=== PATIENT | male | born 1955 | race Caucasian/White ===

== ENCOUNTER 2023-11-15 13:22 | Emergency (ER) | payer OTHER, SELFPAY ==
--- NOTE | ~2023-11-15 | CT_ITS ---
CT HEAD WITHOUT IV CONTRAST CT CERVICAL SPINE WITHOUT IV CONTRAST INDICATION: Multiple falls. COMPARISON: None available. TECHNIQUE: Multidetector CT acquisitions of the head and cervical spine were obtained without IV contrast. Multiplanar reformats were acquired and utilized for image interpretation. This CT examination was performed using dose optimization techniques as appropriate, variously including the following: *Automated exposure control *Adjustment of mA and/or kV according to patient size (this includes techniques or standardized protocols for targeted exams where dose is matched to indication/reason for exam; i.e. 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 There is no intracranial hemorrhage, hydrocephalus, extra-axial surface collection, midline shift, or other herniation pattern. De La Garza to white matter differentiation is diffusely maintained without evidence of an evolved acute territorial infarct. The basilar cisterns are preserved. No significant soft tissue abnormality. No acute osseous abnormality. There is moderate mucosal thickening within the maxillary sinuses and ethmoid air cells bilaterally. The mastoid air cells and middle ear cavities are clear. Chronic appearing traumatic deformity of the right nasal bone. There is also chronic appearing traumatic deformity of the right maxillary sinus. CERVICAL SPINE: No acute fractures and no acute subluxations within the cervical spine. There is advanced cervical spondylosis. Mild degenerative anterior subluxation of C3 on C4. Atherosclerotic calcification involving the carotid bifurcations bilaterally. Biapical pleural parenchymal scarring, greater on the left. CT/CT cervical spine wo IV con IMPRESSION: - No acute intracranial abnormality. 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 - No acute osseous abnormality within the cervical spine. Advanced cervical spondylosis.
[2023-11-15 13:32] VITALS: BP 122/74; BP 138/82; PULSE 81; PULSE 90; RESP 16; TEMP 36.8; O2SAT 100; O2SAT 99; BMI 15.8
[2023-11-15 13:41] VITALS: BP 138/82; PULSE 81; RESP 16; TEMP 36.8; O2SAT 99
[2023-11-15 13:42] LABS: Glucose, Whole Blood 200 mg/dL (60-115)
--- NOTE | 2023-11-15 13:56 | ECG_ITS ---
Test Reason : FALL Blood Pressure : / mmHG Vent. Rate : 093 BPM Atrial Rate : 093 BPM P-R Int : 158 ms QRS Dur : 084 ms QT Int : 370 ms P-R-T Axes : 054 004 054 degrees QTc Int : 460 ms Sinus rhythm with Premature supraventricular complexes Anterior infarct , age undetermined Abnormal ECG No previous ECGs available Referred By: Sara Abdi Electronically Signed By:MAVERICK LERMA MD
--- NOTE | 2023-11-15 14:00 | ED_ITS ---
HPI - General Adult General Chief complaint: Fall Stated complaint: FALL,UNK WHEN,AMS,?ETOH PER EMS Time Seen by Provider: 11/15/23 13:41 Source: patient and EMS Mode of arrival: EMS Limitations: no limitations History of Present Illness HPI narrative: Patient comes to the emergency room via ambulance from home. Today, [employer] [employer] [facility] went to the liver foot to the patient, patient would not open the door. They noticed that the patient was on the floor, they broke into the patient's residence to help him. According to the [employer] personnel, patient was doing well yesterday, ambulatory, house was clean. Today, when EMS arrived, they found 50+ cans of beer. Patient states that he has been feeling weak and has fallen multiple times. Patient does not know how long he was on the floor until he was helped by EMS. Patient states that he did not lose consciousness, patient on blood thinners. EMS reports that on arrival to the patient's residence, blood glucose was 69, patient given D10 and oral glucose which increased the glucose level to 200. When I discussed with the patient what happened with the cans of beer, patient is adamant that he did not drink beer. Patient states that the last time he actually consumed alcohol was 7+ days. Patient states that he call ext can be ears, then gives it to his granddaughter who sells them. Related Data Allergies Allergy/AdvReac Type Severity Reaction Status Date / Time No Known Allergies Allergy Verified 11/15/23 13:55 Review of Systems 2 Review of Systems: Constitutional : No Weight loss, No Fever, No Chills, No Night Sweats, No Fatigue, No Malaise ENT/Mouth : No Hearing loss, No Ear Pain, No Nasal Congestion, No Sinus Pain, No Hoarseness, No sore throat, No Rhinorrhea, No Swallowing Difficulty Eyes: No Eye Pain, No Swelling, No Redness, No Foreign Body, No Discharge, No Vision Changes Cardiovascular : No Chest Pain, No SOB, No Dyspnea on Exertion, No Orthopnea, No Edema, No Palpitations Respiratory : No Cough, No Sputum, No Wheezing, No Smoke Exposure, No Dyspnea Gastrointestinal : No Nausea, No Vomiting, No Diarrhea, No Constipation, No abdominal Pain, No Hematochezia, No Melena Genitourinary : no irregular bleeding, No Dysuria, No Urinary Frequency, No Hematuria, No Urinary Incontinence, No Urgency, No Flank Pain, No Urinary Flow Changes, No Hesitancy Musculoskeletal : Complaining of diffuse body aches and multiple falls, No Myalgias, No Joint Swelling Skin : No Skin Lesions, No rash Neuro : No Weakness, No Numbness, No Paresthesias, No Loss of Consciousness, No Dizziness, No Headache Psych : No Anxiety/Panic, No Depression, No SI/HI/AH/VH, No Social Issues, Heme/Lymph: No Bruising, No Bleeding,No Lymphadenopathy Endocrine : No Polyuria, No Polydipsia, No Temperature Intolerance [facility] Social History Social History Alcohol intake: current Alcohol intake frequency: 3 or more drinks per day Alcohol type: beer Smoked in Last 30 Days: Yes Use of substances other than those prescribed or required for medical reasons: No Advance Directives: No Physical Exam ED Vital Signs: Vital Signs - 24 hr 11/15/23 13:32 11/15/23 13:41 11/15/23 13:41 Temperature 98.2 F 98.2 F 98.2 F Pulse Rate 81 81 81 Respiratory Rate 16 16 16 Blood Pressure 138/82 138/82 138/82 Pulse Oximetry 99 99 99 Oxygen Delivery Method Room Air Room Air 11/15/23 16:47 11/15/23 18:24 Temperature 97.7 F Pulse Rate 93 72 Respiratory Rate 16 16 Blood Pressure 117/60 93/62 Pulse Oximetry 98 98 Oxygen Delivery Method Room Air Room Air BMI result Body Mass Index 15.8 Const Other: Appearance: Alert. Oriented X3. dishelved Eyes: Pupils equal, round and reactive to light. ENT: Pharynx normal. Neck: Normal inspection. Neck supple. No lymph nodes noted. No crepitus CVS: Normal heart rate and rhythm. Pulses normal. Normal S1 and S2 Respiratory: No respiratory distress. Breath sounds normal. No Wheezing. No rales Abdomen: Soft and nontender. No rigidity. No distention. Skin: Skin warm and dry. Normal skin color. Normal skin turgor. Extremities: No lower extremity edema. No Lacerations. No Rash Neuro: Oriented X 3. No motor deficit. No sensory deficit. Moving all extremities. No slurred speech. CN 2 through 12 grossly intact Psych: calm, cooperative, normal affect Medications Administered Discontinued Medications Generic Name Dose Route Start Last Admin Trade Name Freq PRN Reason Stop Dose Admin Sodium Chloride 1,000 mls @ 999 mls/hr 11/15/23 13:56 11/15/23 15:18 Ns IVCONT 11/15/23 14:56 Infused .Q1H1M ONE Infusion Potassium Chloride 60 meq 11/15/23 15:59 11/15/23 16:45 Potassium Chloride Packet 20 Meq Packet PO 11/15/23 16:00 60 meq ONCE ONE Administration Medical Decision Making Medical Decision Making [facility] Narrative: at this time, patient doing well. Denies any pain anywhere. Patient still complaining of feeling weak. -after workup, and no admission is warranted, patient will need case management. -I was informed by the patient's x-ray tree and shrub technician that the patient refused chest x-ray -my interpretation of labs,: Normal white blood cell count. Platelet likely secondary to alcohol intake. Chemistry shows hyponatremia, hypokalemia, repleted. Repeat labs shows improvement in potassium and sodium. Elevated LFTs, chronic secondary to alcohol abuse. Creatinine kinase 441, elevated secondary to being on the floor. No HE, patient does not have UTI, negative for alcohol and drugs -my interpretation head CT: No intracranial bleed -patient improved with IV fluids. Patient seems to be too weak to walk. Patient will need PT and case management. -physician observation started at 19:30 Differential Diagnosis Differential Diagnoses: The differential diagnosis associated with the presentation includes (Alcohol intoxication, cerebrovascular accident, intracranial bleed, UTI, decompensation) Admission/Observation Consideration of admission/observation: Escalation of care including admission/observation considered (Patient will be under observation, physical therapy and Case Management consults will be done in the morning) Lab Data [facility] Lab Attestation statement: I reviewed the patient's lab results. 11/15/23 14:18 11/15/23 18:36 Labs: Lab Results 11/15/23 11/15/23 11/15/23 Range/Units 13:37 14:18 14:29 WBC 5.3 (4.8-10.8) X10*3/uL RBC 4.15 L (4.60-5.80) X10*6/uL Hgb 14.2 (14.0-18.0) g/dl Hct 41.0 L (42.0-52.0) % MCV 98.8 H (80.0-98.0) fL MCH 34.2 H (27.0-33.0) pg MCHC 34.6 (31.0-36.0) g/dl RDW 13.1 (11.0-16.0) % Plt Count 144 L (160-400) X10*3/uL MPV 9.5 (9.4-12.4) fL Immature Gran % (Auto) 0.6 H (0.0-0.4) % Neut % (Auto) 69.3 (45-73) % Lymph % (Auto) 17.1 L (20-40) % Holmes % (Auto) 10.7 (2-11) % Eos % (Auto) 2.1 (0-4) % Baso % (Auto) 0.2 (0-2) % Lymph # (Auto) 0.9 L (1.2-4.9) X10*3/uL Holmes # (Auto) 0.6 (0.1-1.2) X10*3/uL Eos # (Auto) 0.1 (0.0-0.4) X10*3/uL Baso # (Auto) 0.0 (0.0-0.2) X10*3/uL Abs Immat Gran (auto) 0.03 (0.00-0.03) X10*3/uL Absolute Neuts (auto) 3.6 (2.0-8.3) x10*3/uL Absolute Nucleated RBC 0.000 (0.0-0.012) X10*3/uL Nucleated RBC % (auto) 0.0 (0.0-0.2) /100WBC PT 11.3 (11.1-13.3) SEC INR 0.9 (0.9-1.1) Sodium 130 L (135-145) mmol/L Potassium 3.0 L (3.3-5.1) mmol/L Chloride 95 L (96-108) mmol/L Carbon Dioxide 23 (22-29) mmol/L Anion Gap 15 (12-20) BUN 12 (9-16) mg/dL Creatinine 0.78 (0.5-1.4) mg/dL Estim Creat Clear Calc 67.0 Estimated GFR > 60 POC Glucose 200 H (60-115) mg/dL Random Glucose 127 H (60-115) mg/dL Lactic Acid 1.1 (0.5-2.0) mmol/L Calcium 9.0 (8.4-10.2) mg/dL Magnesium 2.0 (1.6-2.6) mg/dL Total Bilirubin 1.9 H (0.0-1.0) mg/dL Direct Bilirubin 0.8 H (0.0-0.5) mg/dL AST 85 H (5-37) U/L ALT 51 H (0-40) U/L Alkaline Phosphatase 58 (39-117) U/L Ammonia 19 (13-55) umol/L Total Creatine Kinase 441 H (38-174) U/L Troponin I High Sens 2.9 (<3.5-35.0) ng/L Total Protein 7.4 (6.5-8.0) g/dL Albumin 3.8 (3.5-5.0) g/dL Lipase 16 (8-78) U/L TSH 0.90 (0.32-4.0) uIU/mL Urine Color Dark Yellow Urine Appearance Clear Urine pH 6.0 (5.0-9.0) Ur Specific Providence 1.015 (1.005-1.025) Urine Protein Negative (Neg-Trace) mg/dL Urine Glucose (UA) Negative (Negative) mg/dL Urine Ketones 40 (Negative) mg/dL Urine Blood Negative (Negative) Urine Nitrite Negative (Negative) Ur Leukocyte Esterase Trace H (Negative) Urine RBC 0-2 (0-2) /HPF Urine WBC 0-5 (0-5) /HPF Ur Squamous Epith Cells 0-2 (0-2) /HPF Urine Bacteria None Seen (None Seen) Hyaline Casts 0-2 (0-2) /LPF Urine Opiates Screen Not Detected (Not Detect) Urine Fentanyl Screen Not Detected (Not Detect) Ur Barbiturates Screen Not Detected (Not Detect) Ur Phencyclidine Scrn Not Detected (Not Detect) Ur Amphetamines Screen Not Detected (Not Detect) U Benzodiazepines Scrn Not Detected (Not Detect) Urine Cocaine Screen Not Detected (Not Detect) U Marijuana (THC) Screen Not Detected (Not Detect) Ethyl Alcohol < 10 mg/dL COVID-19 (ARBEN) Negative (Negative) COVID-19 Clin Com See Note Influenza Type A (NIEVES) Negative (Negative) Influenza Type B (NIEVES) Negative (Negative) Influenza A & B Note See Note 11/15/23 Range/Units 18:36 WBC (4.8-10.8) X10*3/uL RBC (4.60-5.80) X10*6/uL Hgb (14.0-18.0) g/dl Hct (42.0-52.0) % MCV (80.0-98.0) fL MCH (27.0-33.0) pg MCHC (31.0-36.0) g/dl RDW (11.0-16.0) % Plt Count (160-400) X10*3/uL MPV (9.4-12.4) fL Immature Gran % (Auto) (0.0-0.4) % Neut % (Auto) (45-73) % Lymph % (Auto) (20-40) % Holmes % (Auto) (2-11) % Eos % (Auto) (0-4) % Baso % (Auto) (0-2) % Lymph # (Auto) (1.2-4.9) X10*3/uL Holmes # (Auto) (0.1-1.2) X10*3/uL Eos # (Auto) (0.0-0.4) X10*3/uL Baso # (Auto) (0.0-0.2) X10*3/uL Abs Immat Gran (auto) (0.00-0.03) X10*3/uL Absolute Neuts (auto) (2.0-8.3) x10*3/uL Absolute Nucleated RBC (0.0-0.012) X10*3/uL Nucleated RBC % (auto) (0.0-0.2) /100WBC PT (11.1-13.3) SEC INR (0.9-1.1) Sodium 133 L (135-145) mmol/L Potassium 4.3 D (3.3-5.1) mmol/L Chloride 100 (96-108) mmol/L Carbon Dioxide 21 L (22-29) mmol/L Anion Gap 16 (12-20) BUN 10 (9-16) mg/dL Creatinine 0.67 (0.5-1.4) mg/dL Estim Creat Clear Calc 78.0 Estimated GFR > 60 POC Glucose (60-115) mg/dL Random Glucose 60 (60-115) mg/dL Lactic Acid (0.5-2.0) mmol/L Calcium 8.5 (8.4-10.2) mg/dL Magnesium (1.6-2.6) mg/dL Total Bilirubin (0.0-1.0) mg/dL Direct Bilirubin (0.0-0.5) mg/dL AST (5-37) U/L ALT (0-40) U/L Alkaline Phosphatase (39-117) U/L Ammonia (13-55) umol/L Total Creatine Kinase (38-174) U/L Troponin I High Sens (<3.5-35.0) ng/L Total Protein (6.5-8.0) g/dL Albumin (3.5-5.0) g/dL Lipase (8-78) U/L TSH (0.32-4.0) uIU/mL Urine Color Urine Appearance Urine pH (5.0-9.0) Ur Specific Providence (1.005-1.025) Urine Protein (Neg-Trace) mg/dL Urine Glucose (UA) (Negative) mg/dL Urine Ketones (Negative) mg/dL Urine Blood (Negative) Urine Nitrite (Negative) Ur Leukocyte Esterase (Negative) Urine RBC (0-2) /HPF Urine WBC (0-5) /HPF Ur Squamous Epith Cells (0-2) /HPF Urine Bacteria (None Seen) Hyaline Casts (0-2) /LPF Urine Opiates Screen (Not Detect) Urine Fentanyl Screen (Not Detect) Ur Barbiturates Screen (Not Detect) Ur Phencyclidine Scrn (Not Detect) Ur Amphetamines Screen (Not Detect) U Benzodiazepines Scrn (Not Detect) Urine Cocaine Screen (Not Detect) U Marijuana (THC) Screen (Not Detect) Ethyl Alcohol mg/dL COVID-19 (ARBEN) (Negative) COVID-19 Clin Com Influenza Type A (NIEVES) (Negative) Influenza Type B (NIEVES) (Negative) Influenza A & B Note Independent Interpretation I performed an independent interpretation of an: CT Scan Radiology Impression Discussion of test interpretation with radiology: I have reviewed the radiologist's reading. 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 There is no intracranial hemorrhage, hydrocephalus, extra-axial surface collection, midline shift, or other herniation pattern. De La Garza to white matter differentiation is diffusely maintained without evidence of an evolved acute territorial infarct. The basilar cisterns are preserved. No significant soft tissue abnormality. No acute osseous abnormality. There is moderate mucosal thickening within the maxillary sinuses and ethmoid air cells bilaterally. The mastoid air cells and middle ear cavities are clear. Chronic appearing traumatic deformity of the right nasal bone. There is also chronic appearing traumatic deformity of the right maxillary sinus. CERVICAL SPINE: No acute fractures and no acute subluxations within the cervical spine. There is advanced cervical spondylosis. Mild degenerative anterior subluxation of C3 on C4. Atherosclerotic calcification involving the carotid bifurcations bilaterally. Biapical pleural parenchymal scarring, greater on the left. CT/CT head/brain wo IV con IMPRESSION: - No acute intracranial abnormality. 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 - No acute osseous abnormality within the cervical spine. Advanced cervical spondylosis. Independent Historian Clinical information obtained from an independent historian. History obtained from or confirmed by: EMS Critical Care Time Critical Care Time Critical Care Time: Yes Total Critical Care Time: 60 Attestation: I have personally provided critical care time. Time includes review of lab data, radiology results, discussion with consultants, and monitoring for potential decompensation. Intervention performed as documented. Discharge Plan Discharge Clinical Impression: Falls, Physical deconditioning Patient Disposition: Still a Patient
[2023-11-15] MEDS: 0.9 % Sodium Chloride 1,000 ML 999 ML IVCONT (14:21)
[2023-11-15 14:27] LABS: MANUAL DIFF FLAG NO
[2023-11-15 14:34] LABS: INTERNATIONAL NORM RATIO 0.9 (0.9-1.1); Prothrombin Time 11.3 SEC (11.1-13.3)
[2023-11-15 14:37] LABS: Basophils Percent Auto 0.2 % (0-2); Eosinophils Absolute Auto 0.1 X10*3/uL (0.0-0.4); Eosinophils Percent Auto 2.1 % (0-4); Hemoglobin 14.2 g/dl (14.0-18.0); Imm Gran Abs Auto 0.03 X10*3/uL (0.00-0.03); Imm Gran Pct Auto 0.6 % (0.0-0.4); Lymphocytes Absolute Auto 0.9 X10*3/uL (1.2-4.9); Lymphocytes Percent Auto 17.1 % (20-40); Mean Corpuscular HGB Conc 34.6 g/dl (31.0-36.0); Mean Corpuscular Hemoglobin 34.2 pg (27.0-33.0); Mean Corpuscular Volume 98.8 fL (80.0-98.0); Mean Platelet Volume 9.5 fL (9.4-12.4); Monocytes Absolute Auto 0.6 X10*3/uL (0.1-1.2); Monocytes Percent Auto 10.7 % (2-11); Neutrophils Absolute Auto 3.6 x10*3/uL (2.0-8.3); Neutrophils Percent Auto 69.3 % (45-73); Platelet Count 144 X10*3/uL (160-400); Red Blood Count 4.15 X10*6/uL (4.60-5.80); Red Cell Distribution Width 13.1 % (11.0-16.0); White Blood Count 5.3 X10*3/uL (4.8-10.8)
[2023-11-15 14:40] LABS: Appearance Urine Clear; Color Urine Dark Yellow; Glucose Urine UA Negative (Negative); Leukocyte Esterase Urine Trace (Negative); Nitrite Urine Negative (Negative); Specific Gravity - Urine 1.015 (1.005-1.025); UMIC TRIGGER UACC YES; Urine Blood Negative (Negative); Urine Ketones 40 mg/dL (Negative); Urine Protein Negative (Neg-Trace)
[2023-11-15 14:44] LABS: Ammonia 19 umol/L (13-55)
[2023-11-15 14:45] LABS: Bacteria Urine None Seen (None Seen); Hyaline Casts Urine 0-2 /LPF (0-2); RBC Urine 0-2 /HPF (0-2); Squamous Epithelial Cell Urine 0-2 /HPF (0-2); WBC Urine 0-5 /HPF (0-5)
[2023-11-15 14:48] LABS: Lactic Acid 1.1 mmol/L (0.5-2.0)
[2023-11-15 14:49] LABS: COVID-19 Test Negative (Negative); IDNOW Serial# 08D9AD1C; Troponin-I High Sensitivity 2.9 ng/L (<3.5-35.0)
[2023-11-15 14:50] LABS: IDNOW Serial# BCCEAD1C; Influenza A Negative (Negative); Influenza B2 Negative (Negative)
[2023-11-15 14:52] LABS: Amphetamine Screen Urine Not Detected (Not Detect); Barbiturates, Urine Not Detected (Not Detect); Benzodiazepines Screen Urine Not Detected (Not Detect); Cannabinoid Screen Urine Not Detected (Not Detect); Cocaine Screen Urine Not Detected (Not Detect); Fentanyl, urine Not Detected (Not Detect); Opiate Screen Urine Not Detected (Not Detect); Phencyclidine Screen Urine Not Detected (Not Detect)
[2023-11-15 14:53] LABS: Alanine Aminotransferase 51 U/L (0-40); Albumin Level 3.8 g/dL (3.5-5.0); Alkaline Phosphatase 58 U/L (39-117); Anion Gap 15 (12-20); Aspartate Amino Transferase 85 U/L (5-37); Bilirubin Direct 0.8 mg/dL (0.0-0.5); Bilirubin Total 1.9 mg/dL (0.0-1.0); Blood Urea Nitrogen 12 mg/dL (9-16); Carbon Dioxide 23 mmol/L (22-29); Chloride 95 mmol/L (96-108); Estimated Glomerular Filt Rate > 60; Glucose Random 127 mg/dL (60-115); Lipase 16 U/L (8-78); Sodium 130 mmol/L (135-145); Total Protein 7.4 g/dL (6.5-8.0)
[2023-11-15 14:59] LABS: Ethanol < 10 mg/dL
[2023-11-15] MEDS: Potassium Chloride Packet 20 MEQ PACKET 60 MEQ PO (16:45)
[2023-11-15 16:47] VITALS: BP 117/60; PULSE 93; RESP 16; TEMP 36.5; O2SAT 98
[2023-11-15 18:24] VITALS: BP 93/62; PULSE 72; RESP 16; O2SAT 98
[2023-11-15 18:59] LABS: Anion Gap 16 (12-20); Blood Urea Nitrogen 10 mg/dL (9-16); Calcium 8.5 mg/dL (8.4-10.2); Carbon Dioxide 21 mmol/L (22-29); Chloride 100 mmol/L (96-108); Estimated Glomerular Filt Rate > 60; Glucose Random 60 mg/dL (60-115); Potassium 4.3 mmol/L (3.3-5.1); Sodium 133 mmol/L (135-145)
--- NOTE | 2023-11-15 19:17 | PC.NURSE ---
Assumed care for pt. Pt sleeping at the bedside. No apparent distress noted. Breaths are even regular and unlabored. NSR on monitor. HR 75. RR 18. Monitoring ongoing.
--- NOTE | 2023-11-15 20:10 | MHC.CM.ED ---
CM received consult from Dr. Abdi regarding this patient. Pt was found on floor by [employer] personnel. Per MR, [facility] worker sees patient daily and his apartment was clean yesterday. Today, the floor was covered with beer cans. Pt is medically cleared. PT is pending. Pt is refusing CXR. Pt was sound asleep and did not wake when CM attempted to meet with him. Pt will need assessment when he wakes. Has Veterans insurance. CM will follow for discharge needs.
--- NOTE | 2023-11-16 01:40 | MHC.EDTECH ---
Tech hears PT calling for help. Tech helps PT with urinal. PT asks if anyone has called his girlfriend Marline. Tech informs PT that it is the middle of the night and that he can call in the morning. At this time PT become irate and rips off clothes, rips out IV and states that he is going to leave. PT is able to be calmed down and put back into bed. PT awaits PT/CM.
--- NOTE | 2023-11-16 01:54 | PC.NURSE ---
Pt noted to be screaming and yelling at the bedside after waking up from sleeping and asking if girlfriend/backhaul driver (Kimberly) was contacted. Pt agitated and upset as Kimberly has not been reached via telephone. Pt self removed clothing and IV line and trying to get out of bed. Pt was able to be redirected and encouraged to self contact Kimberly in the morning as a cell phone can be provided. Verbal reassurance provided. Food and drink provided and pt is currently calm and cooperative at the bedside. Call arroyo and personal items placed near bedside. Monitoring ongoing.
[2023-11-16] MEDS: Melatonin 3 MG TABLET 6 MG PO (02:28)
--- NOTE | 2023-11-16 02:32 | PC.NURSE ---
Pt requesting medication to help with sleep. made aware. New order in JAN. Pt medicated as ordered. Tolerated well.
--- NOTE | 2023-11-16 05:53 | PC.NURSE ---
Pt alert and oriented to self. At times confused of surroundings and beliefs he is at home in his bedroom. Pt self reports Im confused . Re-oriented to place and situation. Assistance provided to the commode as pt has an unsteady gait. Pt able to move bowels with no difficulty. Food and drink provided. Pt resting calm and cooperative at the bedside.
[2023-11-16 06:04] VITALS: BP 115/70; PULSE 71; RESP 16; TEMP 36.7; O2SAT 98
[2023-11-16 07:20] VITALS: BP 99/65; PULSE 80; RESP 18; TEMP 36.8; O2SAT 99
--- NOTE | 2023-11-16 07:21 | PC.NURSE ---
Pt is a&ox4, resting in stretcher. Pt has no complaints at this time. skin PWD. milk given to pt. Respiraitons even and unlabored. abd soft non tender.
--- NOTE | 2023-11-16 08:29 | PC.NURSE ---
Pt seen by physical therapy
--- NOTE | 2023-11-16 09:09 | PC.NURSE ---
Pharmacy called for med rec
--- NOTE | 2023-11-17 14:25 | MHC.CM.ED ---
Patient d/c'd home on 11/16. Physical therapy recommended home services. Patient Has VA benefits and Medicare. Referral broadcasted in [facility] for [facility]ci and physical therapy. [facility] is able to accept patient.
--- NOTE | 2023-11-21 08:26 | MHC.CM.ED ---
Late entry from 11/18 at 430PM: Received notification from [facility] that patient has not seen PCP since 2019. They will not be able to accept patient.
== END 2023-11-16 10:23 | disposition home or self-care (01) ==
PROVIDERS: Emergency Provider Emergency Medicine; PCP Nurse Practitioner Family
DX: R41.82 Altered mental status, unspecified (principal); R94.31 Abnormal electrocardiogram [ECG] [EKG]; M54.2 Cervicalgia; R26.2 Difficulty in walking, not elsewhere classified; F10.10 Alcohol abuse, uncomplicated; Y90.0 Blood alcohol level of less than 20 mg/100 ml; R11.2 Nausea with vomiting, unspecified; Z91.81 History of falling; Z11.52 Encounter for screening for COVID-19; Z20.822 Contact with and (suspected) exposure to COVID-19; Z79.899 Other long term (current) drug therapy
CPT/HCPCS: 36415; 70450; 72125; 80048; 80076; 80307; 81001; 82140; 82550; 82947; 83605; 83690; 83735; 84443; 84484; 85025; 85610; 87040; 87502; 87635; 93005; 96360; 97161; 99285

== ENCOUNTER → 2023-11-15 13:56 | Outpatient (BNV) | payer OTHER, SELFPAY | PROVIDERS: Emergency Provider Emergency Medicine; PCP Nurse Practitioner Family; Visit Provider Internal Medicine Cardiovascular Disease | DX: R94.31 Abnormal electrocardiogram [ECG] [EKG] (principal) | CPT/HCPCS: 93010 ==

== ENCOUNTER 2024-12-09 13:05 | Emergency (ER) | payer OTHER, SELFPAY ==
--- NOTE | ~2024-12-09 | CT_ITS ---
EXAMINATION: CT HEAD WITHOUT CONTRAST CLINICAL INFORMATION: r/o subdural COMPARISON: CT dated November 15, 2023. TECHNIQUE: Contiguous axial imaging was performed from the skull base to vertex without intravenous administration of contrast. This CT examination was performed using dose optimization techniques as appropriate, variously including the following: *Automated exposure control *Adjustment of mA and/or kV according to patient size (this includes techniques or standardized protocols for targeted exams where dose is matched to indication/reason for exam; i.e. extremities or head) *Use of iterative reconstruction technique DLP: 705 mGy-cm FINDINGS: There is a subtle intra-axial approximately 3 cm hypodensity centered in the anterior left cerebellar/left cerebellar middle peduncle resulting in effacement of the left lateral Luschka foramen and the inferior left quadrigeminal plate/mid bonnie. There is a focal confluent white matter hypodensity throughout the left cerebellar hemisphere and to a lesser extent right cerebellum and the entire left cerebral hemisphere and to a lesser extent right frontoparietal and occipital lobes. There is hypodensity throughout the left midbrain/bonnie and likely the ventral medulla oblongata and left thalamus. There is prominence of the lateral ventricles and third ventricle with effacement of the cerebral sylvian aqueduct. There is a 2 mm [id number] subfalcine herniation. There is asymmetric volume loss/extrinsic compression upon the superior margin of the left lateral ventricle and left frontal horn. I do not see an acute intracranial hemorrhage. No acute fracture in the bony calvarium. No lytic or blastic lesions in the bony calvarium. Acute on chronic paranasal sinus disease resulting in wall thickening and endosteal bone reaction of the paranasal sinuses. There is effervescent secretions, mucosal thickening left maxillary sinus. Tympanic cavities and mastoid air cells are aerated. Probable old traumatic deformities in the nasal bones and nasal septum. 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 Recommend IV contrast enhanced MRI brain and MRA brain for further imaging evaluation. Extensive white matter disease and likely perilesional vasogenic edema. Discussed with Dr. Juan F Araya on December 09, 2024 at 3:30 PM Electronically signed by: Zana Garcia MD 12/09/2024 03:41 PM EST RP
--- NOTE | ~2024-12-09 | XR_ITS ---
EXAMINATION: XR CHEST CLINICAL INFORMATION: cough COMPARISON: None available. TECHNIQUE: Frontal view of the chest was obtained. FINDINGS: Lungs are hyperinflated with a moderate size opacity right midlung question mass versus focal consolidation. There is focal atelectatic changes right lung base. Rest of lungs are clear. No pneumothorax or pleural effusion seen. The heart size and pulmonary vascularity is normal. There is mild spondylosis dorsal spine prior XR/XR chest 1V IMPRESSION: Hyperinflated lungs without acute process. Moderate opacity right midlung suspicious for mass. Differential diagnosis includes focal consolidation. Mild focal atelectasis right lung base. Recommend CT chest with contrast for further evaluation. Electronically signed by: Galen Francisco MD 12/09/2024 02:52 PM [facility]
[2024-12-09 13:21] VITALS: BP 130/81; BP 160/99; PULSE 95; PULSE 98; RESP 19; TEMP 36.6; O2SAT 93; O2SAT 98; BMI 18.0
--- NOTE | 2024-12-09 13:31 | ECG_ITS ---
Test Reason : CHEST PAIN Blood Pressure : */* mmHG Vent. Rate : 79 BPM Atrial Rate : 79 BPM P-R Int : 150 ms QRS Dur : 88 ms QT Int : 378 ms P-R-T Axes : 80 38 59 degrees QTcB Int : 433 ms Normal sinus rhythm Normal ECG When compared with ECG of 15-Nov-2023 14:03, Premature supraventricular complexes are no longer Present Criteria for Anterior infarct are no longer Present Referred By: Juan F Araya Electronically Signed By: Jermaine Dacosta
--- NOTE | 2024-12-09 13:48 | ED_ITS ---
HPI - General Adult General Chief complaint: Weakness Stated complaint: WEAK FOR A WEEK,UNABLE TO AMB PER EMS Time Seen by Provider: 12/09/24 13:29 Source: EMS Mode of arrival: EMS History of Present Illness HPI narrative: This is a 69 years old the patient who is coming from home with a chief complaint of increased weakness for about a week. Patient is blind,lives alone appear confused. He is unable to give a good history at this time. He was in this emergency room October 2023 he was kept on the physician observation and after human services case manager and PT evaluation was sent back home. No reported fever or vomiting or diarrhea Onset (ago): day(s) (5) Radiation: non-radiation Severity: moderate Pain Consistency: constant Relieving factors: none Related Data Allergies Allergy/AdvReac Type Severity Reaction Status Date / Time No Known Allergies Allergy Verified 12/09/24 13:28 Review of Systems 2 Review of Systems: Yes Unobtainable due to [facility] Medical History [facility] Narrative: blind he does have history of alcohol abuse Social History Social History Unable to assess alcohol history related to: Unknown Alcohol intake: current Alcohol intake frequency: 3 or more drinks per day Alcohol type: beer Use of substances other than those prescribed or required for medical reasons: Unknown Advance Directives: No Advance Directives Information Provided: No Do you have a plan to hurt others: No Plan Physical Exam ED Vital Signs: Vital Signs - 24 hr 12/09/24 13:21 12/09/24 14:27 12/09/24 16:07 Temperature 97.8 F Pulse Rate 98 84 91 Respiratory Rate 19 14 20 Blood Pressure 130/81 158/91 H Pulse Oximetry 93 96 Oxygen Delivery Method Room Air Room Air BMI result Body Mass Index 18.0 Patient is not toxic-appearing Const General: alert Nutritional Appearance: cachectic HENMT Other: Not acute distress Face and sinus: Yes normal facial exam Eyes Other: Patient is blind no red reflex Neck Neck: Yes normal visual inspection and Yes full ROM Chest Chest palpation & inspection: normal inspection of the chest Resp Effort & Inspection: normal respiratory effort Auscultation: clear to auscultation bilaterally Cardio Rate: regular rate Rhythm: regular rhythm GI Other: Abdomen is soft no 10 no guarding no rebound Palpation (GI): Soft to palpation, not firm, nontender and no guarding Neuro Other: Move all extremities no focal Course Reevaluation(s) Reevaluation #1: CT scan of the head reviewed with the radiologist, chest x-ray as well. Patient appeared to be confused. I reached out to Kimberly Montes De Oca [phone] she is the waiter/waitress t[employer] she has been taking care of him for about the last 4 years, she states she had patient has been weak for about 1 and half week fell x2. She states that patient has kids by the not around. I called daughter Jaqueline [phone] the number is disconnected. Time: 16:06 Reevaluation #2: unable to reach family,human services case manager called ex Reevaluation #3: I have discussed the case with the neurosurgical service at [facility] I spoke with neurosurgeon MAURA Weinstein patient was accepted but pending is the call from the [facility] hospitalist. Time: 16:25 Additional Reevaluation(s): 4:50 PM accepted in transfer by Dr Perri Johnson. I am off shift now signed out to Dr Naik waiting for bed at [facility] Medications Administered Discontinued Medications Generic Name Dose Route Start Last Admin Trade Name Freq PRN Reason Stop Dose Admin Dexamethasone Sodium Phosphate 10 mg 12/09/24 16:06 12/09/24 16:14 Dexamethasone Sod Phosphate 10 Mg/Ml Vial IVPUSH 12/09/24 16:07 10 mg ONCE ONE Administration Haloperidol Lactate 2.5 mg 12/09/24 15:44 12/09/24 16:14 Haloperidol Lactate 5 Mg/Ml Vial IVPUSH 12/09/24 15:45 2.5 mg ONCE ONE Administration Haloperidol Lactate 2.5 mg 12/09/24 16:12 12/09/24 16:15 Haloperidol Lactate 5 Mg/Ml Vial IVPUSH 12/09/24 16:13 2.5 mg ONCE ONE Administration Sodium Chloride 1,000 mls @ 999 mls/hr 12/09/24 13:45 12/09/24 14:49 Ns IV 12/09/24 14:45 Infused .Q1H1M MORIS Infusion Levetiracetam 1,000 mg in 100 mls @ 400 mls/hr 12/09/24 16:13 12/09/24 16:27 Keppra IV 12/09/24 16:27 400 mls/hr ONCE ONE Administration Medical Decision Making Medical Decision Making [facility] Narrative: Patient presented with generalized weakness we will obtain blood work UA chest x-ray Differential Diagnosis Differential Diagnoses: The differential diagnosis associated with the presentation includes Anemia/UTI/electrolytes abnormality Admission/Observation Consideration of admission/observation: Escalation of care including admission/observation considered Lab Data 12/09/24 13:48 12/09/24 13:48 Labs: Lab Results 12/09/24 12/09/24 Range/Units 13:48 13:53 WBC 6.8 (4.8-10.8) X10*3/uL RBC 4.68 (4.60-5.80) X10*6/uL Hgb 14.2 (14.0-18.0) g/dl Hct 41.1 L (42.0-52.0) % MCV 87.8 (80.0-98.0) fL MCH 30.3 (27.0-33.0) pg MCHC 34.5 (31.0-36.0) g/dl RDW 13.6 (11.0-16.0) % Plt Count 267 D (160-400) X10*3/uL MPV 9.9 (9.4-12.4) fL Immature Gran % (Auto) 0.3 (0.0-0.4) % Neut % (Auto) 63.4 (45-73) % Lymph % (Auto) 23.3 (20-40) % [place] % (Auto) 10.1 (2-11) % Eos % (Auto) 2.5 (0-4) % Baso % (Auto) 0.4 (0-2) % Lymph # (Auto) 1.6 (1.2-4.9) X10*3/uL [place] # (Auto) 0.7 (0.1-1.2) X10*3/uL Eos # (Auto) 0.2 (0.0-0.4) X10*3/uL Baso # (Auto) 0.0 (0.0-0.2) X10*3/uL Abs Immat Gran (auto) 0.02 (0.00-0.03) X10*3/uL Absolute Neuts (auto) 4.3 (2.0-8.3) x10*3/uL Absolute Nucleated RBC 0.000 (0.0-0.012) X10*3/uL Nucleated RBC % (auto) 0.0 (0.0-0.2) /100WBC Troponin I High Sens < 2.7 (<3.5-35.0) ng/L Urine Color Yellow Urine Appearance Clear Urine pH 5.5 (5.0-9.0) Ur Specific [place] 1.025 (1.005-1.025) Urine Protein Negative (Neg-Trace) mg/dL Urine Glucose (UA) Negative (Negative) mg/dL Urine Ketones Trace (Negative) mg/dL Urine Blood Negative (Negative) Urine Nitrite Negative (Negative) Ur Leukocyte Esterase Negative (Negative) Urine RBC 0-2 (0-2) /HPF Urine WBC 0-5 (0-5) /HPF Ur Squamous Epith Cells 0-2 (0-2) /HPF Urine Bacteria None Seen (None Seen) Hyaline Casts 0-2 (0-2) /LPF Independent Interpretation I performed an independent interpretation of an: EKG (T-) Interpretation: Sinus rhythm rate [address]-T changes no ischemia EKG reviewed interpreted by me Critical Care Time Critical Care Time Critical Care Time: Yes Total Critical Care Time: 90 Attestation: taking care of pt arranging transfer Discharge Plan Discharge Clinical Impression: Brain mass Patient Disposition: Xfer Acute Care Hospital Transfer Details: [facility] accepted by Dr Perri Johnson Print Language: Setswana
[2024-12-09] MEDS: 0.9 % Sodium Chloride 1,000 ML 999 ML IV (13:52)
[2024-12-09 13:59] LABS: MANUAL DIFF FLAG NO
[2024-12-09 14:01] LABS: Appearance Urine Clear; Color Urine Yellow; Glucose Urine UA Negative (Negative); Leukocyte Esterase Urine Negative (Negative); Nitrite Urine Negative (Negative); PH 5.5 (5.0-9.0); Specific Gravity - Urine 1.025 (1.005-1.025); Urine Blood Negative (Negative); Urine Ketones Trace mg/dL (Negative); Urine Protein Negative (Neg-Trace)
[2024-12-09 14:03] LABS: Bacteria Urine None Seen (None Seen); Hyaline Casts Urine 0-2 /LPF (0-2); RBC Urine 0-2 /HPF (0-2); Squamous Epithelial Cell Urine 0-2 /HPF (0-2); WBC Urine 0-5 /HPF (0-5)
[2024-12-09 14:03] LABS: Basophils Percent Auto 0.4 % (0-2); Eosinophils Absolute Auto 0.2 X10*3/uL (0.0-0.4); Eosinophils Percent Auto 2.5 % (0-4); Hematocrit 41.1 % (42.0-52.0); Hemoglobin 14.2 g/dl (14.0-18.0); Imm Gran Abs Auto 0.02 X10*3/uL (0.00-0.03); Imm Gran Pct Auto 0.3 % (0.0-0.4); Lymphocytes Absolute Auto 1.6 X10*3/uL (1.2-4.9); Lymphocytes Percent Auto 23.3 % (20-40); Mean Corpuscular HGB Conc 34.5 g/dl (31.0-36.0); Mean Corpuscular Hemoglobin 30.3 pg (27.0-33.0); Mean Corpuscular Volume 87.8 fL (80.0-98.0); Mean Platelet Volume 9.9 fL (9.4-12.4); Monocytes Absolute Auto 0.7 X10*3/uL (0.1-1.2); Monocytes Percent Auto 10.1 % (2-11); Neutrophils Absolute Auto 4.3 x10*3/uL (2.0-8.3); Neutrophils Percent Auto 63.4 % (45-73); Platelet Count 267 X10*3/uL (160-400); Red Blood Count 4.68 X10*6/uL (4.60-5.80); Red Cell Distribution Width 13.6 % (11.0-16.0); White Blood Count 6.8 X10*3/uL (4.8-10.8)
[2024-12-09 14:23] LABS: Troponin-I High Sensitivity < 2.7 ng/L (<3.5-35.0)
[2024-12-09 14:27] VITALS: PULSE 84; RESP 14
[2024-12-09 16:07] VITALS: BP 158/91; PULSE 91; RESP 20; O2SAT 96
[2024-12-09] MEDS: Haloperidol Lactate 5 MG/ML VIAL 2.5 MG IVPUSH ×2 (16:14→16:15)
[2024-12-09] MEDS: dexAMETHasone sod phosphate 10 MG/ML VIAL IVPUSH (16:14)
[2024-12-09] MEDS: levETIRAcetam in NaCl (iso-os) 1,000 MG/100 ML PIGGYBACK 400 MG IV (16:27)
--- NOTE | 2024-12-09 17:10 | PC.NURSE ---
ex : Britta reports pt significant hx of severe ETOH abuse, possible dx of W[facility]icke-K[facility] daughter is no longer in contact with pt and has changed her phone number, ex reports she does not want to give number out at this time.
[2024-12-09 17:23] LABS: Alanine Aminotransferase 9 U/L (0-40); Albumin Level 3.7 g/dL (3.5-5.0); Alkaline Phosphatase 54 U/L (39-117); Anion Gap 12 (12-20); Aspartate Amino Transferase 32 U/L (5-37); Bilirubin Total 1.1 mg/dL (0.0-1.0); Blood Urea Nitrogen 26 mg/dL (9-16); Calcium 8.7 mg/dL (8.4-10.2); Carbon Dioxide 22 mmol/L (22-29); Chloride 106 mmol/L (96-108); Creatinine Clr Calc Pharmacy 73.2; Estimated Glomerular Filt Rate > 60; Ethanol < 10 mg/dL; Glucose Random 100 mg/dL (60-115); Potassium 3.9 mmol/L (3.3-5.1); Sodium 136 mmol/L (135-145)
[2024-12-09 18:54] VITALS: BP 136/72; PULSE 95; RESP 20; TEMP 37.2
--- NOTE | 2024-12-09 18:55 | PC.NURSE ---
Report called to JAI Parsons at [facility] for transfer; pt remains combative/uncooperative with care/in soft wrist reatriants; skin to wrists showing signes of abrasions; restraints removed, Kerlix applied to bilat wrist to protect skin and reapplied; this RN able to fit 2 fingers under restrains; bedside report gv to ALS crew for transport
[2024-12-09 18:57] VITALS: BP 136/72; PULSE 95; RESP 20; TEMP 37.2; O2SAT 95
[2024-12-13 09:55] LABS: Haloperidol 10 ng/mL (5-15)
== END 2024-12-09 19:09 | disposition short-term general hospital (02) ==
PROVIDERS: Emergency Provider Emergency Medicine
DX: R22.0 Localized swelling, mass and lump, head (principal); R53.1 Weakness; Z91.81 History of falling; F10.10 Alcohol abuse, uncomplicated; Y90.0 Blood alcohol level of less than 20 mg/100 ml
CPT/HCPCS: 36415; 70450; 71045; 80053; 80173; 80307; 81001; 84484; 85025; 93005; 96361; 96365; 96375; 99284; 99285; J1100; J1630; J1953

== ENCOUNTER → 2024-12-09 13:31 | Outpatient (BNV) | payer OTHER, SELFPAY | PROVIDERS: Emergency Provider Emergency Medicine; Visit Provider Internal Medicine Cardiovascular Disease | DX: R07.9 Chest pain, unspecified (principal) | CPT/HCPCS: 93010 ==

== ENCOUNTER → 2024-12-09 13:31 | Outpatient (BNV) | payer MEDICARE, SELFPAY | PROVIDERS: Emergency Provider Emergency Medicine; Visit Provider Radiology Diagnostic Radiology | DX: R05.9 Cough, unspecified (principal); R53.1 Weakness | CPT/HCPCS: 70450; 71045 ==